=== PATIENT | female | born 1980 | race Caucasian/White ===

== ENCOUNTER 2022-07-07 20:25 | Emergency (ER) | payer BC, SELFPAY ==
--- OUTSIDE RECORDS SUMMARY | 2022-07-07 20:27 | XMS REPORT | Continuity of Care Document ---
:1980 Author Organization [facility] t Address [address] [place] [address] Care Team Providers Name Role Phone Pcp, Patient Does Not Have A Primary Care Physician +[id number] Nurse, [facility] Attending Clinician Unavailable Valentina Ellington MD Attending Clinician VALENTINA ELLINGTON Attending Clinician Unavailable Doctor Unassigned, [place] Attending Clinician Unavailable Migdalia Copeland Attending Clinician Angy Mobley Attending Clinician MIGDALIA KINCAID Attending Clinician Unavailable Payers Payer Name Policy Type Policy Number Effective Date Expiration Date S ource Problems Condition Condition Condition Status Onset Resolution Last Treating Co mments Source Name Details Category Date Date Treatment Clinician Date No known No known Disease Unive rs active active ity of problems problems [facility] Allergies, Adverse Reactions, Alerts Allergy Allergy Status Severity Reaction(s) Onset Inactive Treating Comm ents Source Name Type Date Date Clinician NO KNOWN Drug Active Univers ALLERGIE Class ity of S [facility] Social History Social Habit Start Date Stop Date Quantity Comments Source Exposure to Not sure [facility] SARS-CoV-2 (event) Medica l Branch Tobacco use and 2022-01-13 2022-01-13 Never used [facility] exposure 00:00:00 00:00:00 [facility] Sex Assigned At [birth year] [facility] 00:00:00 00:00:00 [facility] Smoking Status Start Date Stop Date Source Never smoker [facility] Medications Ordered Filled Start Stop Current Ordering Indication Dosage Frequency Signature Comments Components Source Medication Medication Date Date Medication? Clinician (SIG) Name Name cefTRIAXone 2021- No [id number] 500mg 500 mg, Univers (ROCEPHIN) 01-15 Intramuscu it y of injection 06:00: 17:20 [place]CE, [place] 500 mg 00 :00 1 dose, On Medical Fri Branch 01/15/22 at 0000, BILL
Re ason for Anti-Infec tive: Documented Infection< br>Documen mauricio Infection Site: Urine
D uration of Therapy: 7 days cefTRIAXone 2021- No [id number] 500mg Univers (ROCEPHIN) 01-15 ity of injection 06:00: 17:59 [place] 500 mg 00 :00 Medical Branch cefTRIAXone 2021- No [id number] 500mg Univers (ROCEPHIN) 01-15 ity of injection 06:00: 17:59 [place] 500 mg 00 :00 Medical Branch lidocaine 2021- No [id number] 1.1mL Un terence 1% (PF) 01-14 ity of (XYLOCAINE) 22:30: 10:29 [place] injection 00 :00 Medical 1.1 mL Branch metroNIDAZO 2021- No [id number] 500mg Take 1 Univers LE (FLAGYL) 01-1425 tablet by it y of 500 mg 00:00: 05:59 mouth [place] tablet 00 :00 every 12 Medical (twelve) Branch hours for 7 days. metroNIDAZO 2021- No [id number] 500mg Take 1 Univers LE (FLAGYL) 01-1425 tablet by it y of 500 mg 00:00: 05:59 mouth [place] tablet 00 :00 every 12 Medical (twelve) Branch hours for 7 days. metroNIDAZO 2021- No [id number] 500mg Take 1 Univers LE (FLAGYL) 01-1425 tablet by it y of 500 mg 00:00: 05:59 mouth [place] tablet 00 :00 every 12 Medical (twelve) Branch hours for 7 days. metroNIDAZO 2021- No [id number] 500mg Take 1 Univers LE (FLAGYL) 01-14-25 tablet by it y of 500 mg 00:00: 05:59 mouth [place] tablet 00 :00 every 12 Medical (twelve) Branch hours for 7 days. dextroamphe 2022-0 Yes 30mg Take 30 mg Univers tamine-amph 1-19 by mouth 2 it y of etamine 30 00:00: (two) [place] mg tablet 00 times Medical daily. Branch dextroamphe 2-0 Yes 30mg Take 30 mg Univers tamine-amph 1-19 by mouth 2 it y of etamine 30 00:00: (two) [place] mg tablet 00 times Medical daily. Branch dextroamphe 2-0 Yes 30mg Take 30 mg Univers tamine-amph 1-19 by mouth 2 it y of etamine 30 00:00: (two) [place] mg tablet 00 times Medical daily. Branch dextroamphe 2-0 Yes 30mg Take 30 mg Univers tamine-amph 1-19 by mouth 2 it y of etamine 30 00:00: (two) [place] mg tablet 00 times Medical daily. Branch dextroamphe 2021-0 Yes 30mg Take 30 mg Univers tamine-amph 1-19 by mouth 2 it y of etamine 30 00:00: (two) [place] mg tablet 00 times Medical daily. Branch clonazePAM 2021-0 Yes .5mg Take 0.5 Uni vers 0.5 mg 1-18 mg by ity of tablet 00:00: mouth at [place] [address] bedtime. Medical Branch clonazePAM 2021-0 Yes .5mg Take 0.5 Uni vers 0.5 mg 1-18 mg by ity of tablet 00:00: mouth at [place] [address] bedtime. Medical Branch clonazePAM 2021-0 Yes .5mg Take 0.5 Uni vers 0.5 mg 1-18 mg by ity of tablet 00:00: mouth at [place] [address] bedtime. Medical Branch clonazePAM 2-0 Yes .5mg Take 0.5 Uni vers 0.5 mg 1-18 mg by ity of tablet 00:00: mouth at [place] [address] bedtime. Medical Branch clonazePAM 2-0 Yes .5mg Take 0.5 Uni vers 0.5 mg 1-18 mg by ity of tablet 00:00: mouth at [place] [address] bedtime. Medical Branch escitalopra 2020-11 Yes TAKE HALF U nivers m oxalate 2-20 OF A ity of 10 mg 00:00: TABLET (5 [place] tablet 00 MG) BY Medical MOUTH Branch DAILY FOR 1 WEEK THEN TAKE 10 MG BY MOUTH traZODone 2021-1 Yes TAKE 25-50 Un terence 50 mg 2-20 MG (1/2 -1 ity of tablet 00:00: TABLET) BY [address] DAILY AT [facility] 2020-11 Yes TAKE HALF U nivers m oxalate 2-20 OF A ity of 10 mg 00:00: TABLET (5 [place] tablet 00 MG) BY [facility] MOUTH [place] DAILY FOR 1 WEEK THEN TAKE 10 MG BY MOUTH traZODone 2020-11 Yes TAKE 25-50 Un terence 50 mg 2-20 MG (1/2 -1 ity of tablet 00:00: TABLET) BY [address] [facility]-11 Yes TAKE HALF U nivers m oxalate 2-20 OF A ity of 10 mg 00:00: TABLET (5 [place] tablet 00 MG) BY [facility] MOUTH [place] DAILY FOR 1 WEEK THEN TAKE 10 MG BY MOUTH traZODone 2020-11 Yes TAKE 25-50 Un terence 50 mg 2-20 MG (1/2 -1 ity of tablet 00:00: TABLET) BY [address] DAILY AT [facility] 2020-11 Yes TAKE HALF U nivers m oxalate 2-20 OF A ity of 10 mg 00:00: TABLET (5 [place] tablet 00 MG) BY [facility] MOUTH [place] DAILY FOR 1 WEEK THEN TAKE 10 MG BY MOUTH traZODone 2020-11 Yes TAKE 25-50 Un terence 50 mg 2-20 MG (1/2 -1 ity of tablet 00:00: TABLET) BY [address] [facility] 2020-11 Yes TAKE HALF U nivers m oxalate 2-20 OF A ity of 10 mg 00:00: TABLET (5 [place] tablet 00 MG) BY [facility] MOUTH [place] DAILY FOR 1 WEEK THEN TAKE 10 MG BY MOUTH traZODone 2020-11 Yes TAKE 25-50 Un terence 50 mg 2-20 MG (1/2 -1 ity of tablet 00:00: TABLET) BY [address] DAILY AT [facility] Vital Signs Vital Name Observation Time Observation Value Comments Source Systolic blood 2022-01-15 17:23:00 120 mm[Hg] Univer sity of pressure [facility] Diastolic blood 2022-01-15 17:23:00 82 mm[Hg] Unive rsity of pressure [place] [facility] Heart rate 2022-01-15 17:23:00 104 /min [facility] [place] [facility] Body temperature 2022-01-15 17:23:00 36.94 [place] [facility] ersity of [place] [facility] Respiratory rate 2022-01-15 17:23:00 16 /min Univ ersity [facility] [place] [facility] Body height 2022-01-15 17:23:00 154.9 cm [facility] [place] [facility] Body weight 2022-01-15 17:23:00 56.246 kg [facility] [place] [facility] BMI 2022-01-15 17:23:00 23.43 kg/m2 [facility] [place] [facility] Oxygen saturation in 2022-01-15 17:23:00 100 /min University of Arterial blood by [place] [employer] melissa Pulse oximetry Branch Systolic blood 2022-01-14 00:15:00 137 mm[Hg] Univer sity of [place] [facility] [place] Diastolic blood 2022-01-14 00:15:00 88 mm[Hg] Unive rsity of [place] [facility] [place] Heart rate 2022-01-14 00:15:00 108 /min [facility] [place] [facility] Body temperature 2022-01-14 00:15:00 37 [place] [facility] Respiratory rate 2022-01-14 00:15:00 16 /min [facility] ersity [facility] Medical Branch Body height 2022-01-14 00:15:00 154.9 cm [facility] [place] [facility] Body weight 2022-01-14 00:15:00 55.611 kg [facility] [place] [facility] BMI 2022-01-14 00:15:00 23.17 kg/m2 [facility] [place] [facility] Oxygen saturation in 2022-01-14 00:15:00 97 /min University of Arterial blood by [facility] Pulse oximetry Branch Procedures Procedure Date / Time Performing Clinician Source Performed CONSENT/REFUSAL FOR 2022-01-15 17:10:16 Doctor Unassigned, No [facility] DIAGNOSIS AND TREATMENT Name Medical Branch ASSIGNMENT OF BENEFITS 2022-01-15 17:10:05 Doctor Unassigned, No [facility] Name Medical Branch GALV ONLY - VAGINAL 2022-01-14 00:35:00 Migdalia Kincaid [facility] [place] PATHOGENS BY [employer] [facility] ACID TESTING URINALYSIS MICROSCOPIC 2022-01-14 00:25:00 Migdalia Kincaid [facility] GC & CHLAMYDIA 2022-01-14 00:25:00 Sanjiv [facility] COVID-19 (MOLECULAR 2022-01-14 00:18:00 Sanjiv [facility] NUCLEIC ACID AMPLIFICATION) POCT MOLECULAR FLU 2022-01-14 00:15:00 Angy Hernandez [facility] Encounters Start End Encounter Admission Attending Care Care Encounter Source Date/Time Date/Time Type Type Clinicians Facility Department ID 2022-01-15 2022-01-15 Nurse Nurse, [facility] [id number] Univers 11:00:00 11:20:00 Visit [facility] [id number] ity [facility] [id number] Cl as RENEA?BLEA [id number] [address] MEDICAL OFFICE [facility] 2022-01-15 2022-01-15 Outpatient R [facility] [id number] Univers 11:00:00 11:00:00 [id number] 2022-01-15 [id number] Univers 11:00:00 11:00:00 [facility] 2022-01-15 2022-01-15 Orders Doctor [place] [id number] Univers 00:00:00 00:00:00 Only Unassigned, DYLAN [id number] [place] [facility] [id number] Cl as [id number] [address] 2022-01-14 2022-01-14 Case [facility] [id number] Univers 00:00:00 00:00:00 Management [facility] [id number] ity of [place] [id number] Cl as RENEA?BLEA [phone] [address] MEDICAL OFFICE BUILDING 2022-01-14 2022-01-14 [facility] [id number] Univers 00:00:00 00:00:00 [facility] [id number] [facility] [id number] Cl as RENEA?BLEA [phone] [address] MEDICAL OFFICE [facility] 2022-01-13 2022-01-13 Urgent Migdalia Kincaid [facility] [id number] Univers 18:40:00 18:52:37 [facility] [id number] ity [facility] [id number] Cl as RENEA?BLEA [id number] [address] OFFICE [facility] 2022-01-13 2022-01-13 Outpatient R SANJIV [facility] [id number] [facility] 18:40:00 18:52:37 [facility] Results Test Description Test Time Test Comments Results Result Comments Source POCT MOLECULAR FLU 2022-01-14 00:26:12 Test Item Value Reference Range Interpretation Comme nts POCT Molecular FluA (test code = 18817-1) Negative Negative POCT Molecular FluB (test code = 27404-6) Negative Negative Lab Interpretation (test code = 02648-4) Normal [facility]
[2022-07-07 21:16] LABS: Urine Blood Negative (Negative); Urine Glucose Negative (Negative); Urine Protein Negative (Negative); Urine Specific Gravity <=1.005 (1.005-1.030); Urine pH 6.5 (5.0-7.0)
[2022-07-07 21:53] LABS: Absolute Lymphocytes (CBC) 1.3 K/uL (0.7-4.9); Hematocrit 34.7 % (36.0-45.0); MPV 7.2 fL (7.6-11.3); RBC Red Blood Cell Count 3.69 M/uL (3.86-4.86)
[2022-07-07 22:05] LABS: ALT/SGPT 23 U/L (12-78); AST/SGOT 20 U/L (15-37); Albumin 3.2 g/dL (3.4-5.0); Alkaline Phosphatase 66 U/L (45-117); BUN Blood Urea Nitrogen 8 mg/dL (7-18); Bicarbonate 28 mmol/L (21-32); Bilirubin Total 0.2 mg/dL (0.2-1.0); Glomerular Filtration Rate 118 ml/min (=/>90); Glucose Level 94 mg/dL (74-106); Potassium 3.8 mmol/L (3.5-5.1); Protein, Total 6.1 g/dL (6.4-8.2); Sodium Level 143 mmol/L (136-145)
[2022-07-07 22:07] LABS: Bilirubin Direct < 0.1 mg/dL (0-0.2)
[2022-07-07 22:22] LABS: Barbiturates NEGATIVE (NEGATIVE); Benzodiazepines NEGATIVE (NEGATIVE); Cocaine NEGATIVE (NEGATIVE); METHAMPHETAM POSITIVE (NEGATIVE); Methadone NEGATIVE (NEGATIVE); Opiates NEGATIVE (NEGATIVE); Phencyclidine NEGATIVE (NEGATIVE); THC Cannibis NEGATIVE (NEGATIVE)
--- NOTE | 2022-07-07 22:44 | ER ---
Nurse's Notes [facility] Name: Lola Curtis Age: 42 yrs Sex: Female : 1980 Arrival Date: 07/07/2022 Time: 20:33 Bed 18 Private MD: Diagnosis: Post-traumatic stress disorder (PTSD);Anxiety disorder, unspecified Presentation: 07/07 20:48 Chief complaint: EMS states: son called ems for pt who took "unknown amount" of sm5 klonopin and was worried about her. pt stating she only took 2 due to having an anxiety attack. pt with full bottle of klonopin. Coronavirus screen: At this time, the client does not indicate any symptoms associated with coronavirus-19. Ebola Screen: No symptoms or risks identified at this time. Initial Sepsis Screen: Does the patient meet any 2 criteria? No. Patient's initial sepsis screen is negative. Does the patient have a suspected source of infection? No. Patient's initial sepsis screen is negative. Risk Assessment: Do you want to hurt yourself or someone else? Patient reports no desire to harm self or others. Onset of symptoms was July 07, 2022. 20:48 Method Of Arrival: EMS: [facility] 20:48 Acuity: TETE 3 sm5 Triage Assessment: 20:51 General: Appears in no apparent distress. Behavior is cooperative. Pain: Denies pain. sm5 Neuro: Level of Consciousness is awake, alert, obeys commands, Oriented to person, place, time, situation. Cardiovascular: Capillary refill < 3 seconds Patient's skin is warm and dry. Respiratory: Airway is patent Trachea midline Respiratory effort is even, unlabored. Historical: - Allergies: 20:50 No Known Allergies; sm5 - PSHx: 20:50 Total abdominal hysterectomy; Tonsillectomy; sm5 - Immunization history:: Client reports receiving the 2nd dose of the Covid vaccine. - Social history:: Smoking status: unknown. Screenin:51 Abuse screen: Denies threats or abuse. Denies injuries from another. Nutritional sm5 screening: No deficits noted. Tuberculosis screening: No symptoms or risk factors identified. Fall Risk None identified. Assessment: 21:18 Reassessment: see triage. 5 22:00 Reassessment: Patient and/or family updated on plan of care and expected duration. Pain ke1 level reassessed. Patient is alert, oriented x 3, equal unlabored respirations, skin warm/dry/pink. Patient states feeling better. Patient states symptoms have improved. General: Appears in no apparent distress. Behavior is appropriate for age. Neuro: Level of Consciousness is awake, alert, Oriented to person, place, time, situation. 22:56 Respiratory: Trachea midline Respiratory effort is even, unlabored, Respiratory pattern ke1 is regular, symmetrical. Vital Signs: 20:48 BP 141 / 90; Pulse 101; Resp 18; Pulse Ox 100% on R/A; Weight 53.98 kg; sm5 22:57 BP 132 / 86; Pulse 92; Resp 18; Pulse Ox 100% ; Pain 0/10; ke1 ED Course: 20:33 Patient arrived in ED. ke1 20:35 Nicole Salinas FNP-C [facility]. snw 20:35 Kash Baig MD is Attending Physician. snw 20:50 Triage completed. 5 20:51 Arm band placed on right wrist. 5 20:51 Patient has correct armband on for positive identification. Bed in low position. Call 5 light in reach. Side rails up X2. 21:18 Maintain EMS IV. Dressing intact. Good blood return noted. Site clean \\T\\ dry. Gauge \\T\\ sm 5 site: 18G R AC. 22:52 Starr Stevens, PATTIE is Primary Nurse. ke1 22:54 No provider procedures requiring assistance completed. IV discontinued. ke1 Administered Medications: No medications were administered Medication: 20:51 VIS not applicable for this client. 5 Outcome: 22:44 Discharge ordered by . snw 22:55 Discharged to home ambulatory. ke1 22:55 Condition: good 22:55 Discharge instructions given to patient. 22:58 Patient left the ED. ke1 Signatures: Nicole Salinas FNP-C FNP-Judy Delcid RN RN [facility] Starr Stevens RN RN ke1
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
[2022-07-07 23:43] LABS: Protime INR 1.03
[2022-07-08 01:52] VITALS: O2SAT 100
[2022-07-08 01:55] VITALS: BP 132/86
--- NOTE | 2022-07-08 14:32 | EKG ---
Test Date: 2022-07-07 Test Time: 21:20:23 Registered Respiratory Therapist: OMAR MEASUREMENT RESULTS: Intervals: Rate: 97 KS: 152 QRSD: 80 QT: 336 QTc: 426 [place]: P: 60 KS: 152 QRS: 31 T: 60 INTERPRETIVE STATEMENTS: Normal sinus rhythm Normal ECG No previous ECG available for comparison Electronically Signed On 07-08-22 14:30:29 CDT by Magdy Contreras
== END 2022-07-07 22:58 | disposition home or self-care (01) ==
LOC: ER 20:25
DX: F41.9 Anxiety disorder, unspecified (principal); F43.10 Post-traumatic stress disorder, unspecified
CPT/HCPCS: 36415; 80048; 80076; 80307; 80320; 80329; 81003; 85025; 85610; 85730; 93005; 99283

== ENCOUNTER 2023-02-16 21:44 | Emergency (ER) | payer OTHER ==
--- OUTSIDE RECORDS SUMMARY | 2023-02-16 21:48 | XMS REPORT | Continuity of Care Document ---
:1980 Author Organization [facility] t Address [address] [facility]. [address] [place] [id number] Care Team Providers Name Role Phone Pcp, Patient Does Not Have A Primary Care Physician +[phone] Doctor Unassigned, [place] Attending Clinician Unavailable [facility] Attending Clinician Unavailable Valentina Ellington MD Attending Clinician VALENTINA ELLINGTON Attending Clinician Unavailable Migdalia Copeland Attending Clinician MIGDALIA KINCAID Attending Clinician Unavailable Angy Mobley Attending Clinician Payers Payer Name Policy Type Policy Number Effective Date Expiration Date S ource Problems Condition Condition Condition Status Onset Resolution Last Treating Co mments Source Name Details Category Date Date Treatment Clinician Date No known No known Disease Unive rs active active ity of problems problems [facility] Allergies, Adverse Reactions, Alerts Allergy Allergy Status Severity Reaction(s) Onset Inactive Treating Comm ents Source Name Type Date Date Clinician NO KNOWN Drug Active Univers ALLERGIE Class ity of S [facility] Social History Social Habit Start Date Stop Date Quantity Comments Source Exposure to Not sure [facility]-CoV-2 [facility] (event) [place] Tobacco use and 2022-01-13 2022-01-13 Smokeless tobacco Un iversity of exposure 00:00:00 00:00:00 non-user [facility] Sex Assigned At [birth year] Universit y of 00:00:00 00:00:00 [facility] Smoking Status Start Date Stop Date Source Never smoked tobacco [facility] Medications Ordered Filled Start Stop Current Ordering Indication Dosage Frequency Signature Comments Components Source Medication Medication Date Date Medication? Clinician (SIG) Name Name cefTRIAXone 2021- No [id number] 500mg 500 mg, Univers (ROCEPHIN) 01-15 Intramuscu it y of injection 06:00: 17:20 [place], ONCE, [place] 500 mg 00 :00 1 dose, On Medical Fri Branch 01/15/22 at 0000, BILL
Re ason for Anti-Infec tive: Documented Infection< br>Documen mauricio Infection Site: Urine
D uration of Therapy: 7 days cefTRIAXone 2021- No [id number] 500mg Univers (ROCEPHIN) 01-15 ity of injection 06:00: 17:59 [place] 500 mg 00 :00 Medical Branch cefTRIAXone 2021- No [id number] 500mg Univers (ROCEPHIN) 01-15 ity of injection 06:00: 17:59 [place] 500 mg 00 :00 Medical Branch lidocaine 2021- No [id number] 1.1mL Un terence 1% (PF) 01-14 ity of (XYLOCAINE) 22:30: 10:29 [place] injection 00 :00 Medical 1.1 mL Branch metroNIDAZO 2021- No [id number] 500mg Take 1 Univers LE (FLAGYL) 01-14 tablet by it y of 500 mg 00:00: 05:59 mouth [place] tablet 00 :00 every 12 Medical (twelve) Branch hours for 7 days. metroNIDAZO 2021- No [id number] 500mg Take 1 Univers LE (FLAGYL) 01-14-25 tablet by it y of 500 mg 00:00: 05:59 mouth [place] tablet 00 :00 every 12 Medical (twelve) Branch hours for 7 days. metroNIDAZO 2021- No [id number] 500mg Take 1 Univers LE (FLAGYL) 01-14-25 tablet by it y of 500 mg 00:00: 05:59 mouth [place] tablet 00 :00 every 12 Medical (twelve) Branch hours for 7 days. metroNIDAZO 2021- No [id number] 500mg Take 1 Univers LE (FLAGYL) 2-14 01-25 tablet by it y of 500 mg 00:00: 05:59 mouth [place] tablet 00 :00 every 12 Medical (twelve) Branch hours for 7 days. dextroamphe 2022-0 Yes 30mg Take 30 mg Univers tamine-amph 1-19 by mouth 2 it y of etamine 30 00:00: (two) [place] mg tablet 00 times Medical daily. Branch dextroamphe 2022-0 Yes 30mg Take 30 mg Univers tamine-amph 1-19 by mouth 2 it y of etamine 30 00:00: (two) [place] mg tablet 00 times Medical daily. Branch dextroamphe 2022-0 Yes 30mg Take 30 mg Univers tamine-amph 1-19 by mouth 2 it y of etamine 30 00:00: (two) [place] mg tablet 00 times Medical daily. Branch dextroamphe 2022-0 Yes 30mg Take 30 mg Univers tamine-amph 1-19 by mouth 2 it y of etamine 30 00:00: (two) [place] mg tablet 00 times Medical daily. Branch dextroamphe 2022-0 Yes 30mg Take 30 mg Univers tamine-amph 1-19 by mouth 2 it y of etamine 30 00:00: (two) [place] mg tablet 00 times Medical daily. Branch dextroamphe 2022-0 Yes 30mg Take 30 mg Univers tamine-amph 1-19 by mouth 2 it y of etamine 30 00:00: (two) [place] mg tablet 00 times Medical daily. Branch clonazePAM 2022-0 Yes .5mg Take 0.5 Uni vers 0.5 mg 1-18 mg by ity of tablet 00:00: mouth at [place] [address] bedtime. Medical Branch clonazePAM 2022-0 Yes .5mg Take 0.5 Uni vers 0.5 mg 1-18 mg by ity of tablet 00:00: mouth at [place] [address] bedtime. Medical Branch clonazePAM 2022-0 Yes .5mg Take 0.5 Uni vers 0.5 mg 1-18 mg by ity of tablet 00:00: mouth at [place] [address] bedtime. Medical Branch clonazePAM 2022-0 Yes .5mg Take 0.5 Uni vers 0.5 mg 1-18 mg by ity of tablet 00:00: mouth at [place] [address] bedtime. Medical Branch clonazePAM 2022-0 Yes .5mg Take 0.5 Uni vers 0.5 mg 1-18 mg by ity of tablet 00:00: mouth at [place] [address] bedtime. Medical Branch clonazePAM 2022-0 Yes .5mg Take 0.5 Uni vers 0.5 mg 1-18 mg by ity of tablet 00:00: mouth at [address] [facility] Yes TAKE HALF U nivers m oxalate 2-20 OF A ity of 10 mg 00:00: TABLET (5 [place] tablet 00 MG) BY [facility] MOUTH [place] DAILY FOR 1 WEEK THEN TAKE 10 MG BY MOUTH traZODone 2020-11 Yes TAKE 25-50 Un terence 50 mg 2-20 MG (1/2 -1 ity of tablet 00:00: TABLET) BY [address] DAILY AT [facility] escitalopra 2020-11 Yes TAKE HALF U nivers m oxalate 2-20 OF A ity of 10 mg 00:00: TABLET (5 [place] tablet 00 MG) BY [facility] MOUTH [place] DAILY FOR 1 WEEK THEN TAKE 10 MG BY MOUTH traZODone 2020-11 Yes TAKE 25-50 Un terence 50 mg 2-20 MG (1/2 -1 ity of tablet 00:00: TABLET) BY [address] [facility] Yes TA[facility] HALF U nivers m oxalate 2-20 OF A ity of 10 mg 00:00: TABLET (5 [place] tablet 00 MG) BY [facility] MOUTH [place] DAILY FOR 1 WEEK THEN TAKE 10 MG BY MOUTH traZODone 2020-11 Yes TAKE 25-50 Un terence 50 mg 2-20 MG (1/2 -1 ity of tablet 00:00: TABLET) BY [address] DAILY AT [facility] escitalopra 2020-11 Yes TAKE HALF U nivers m oxalate 2-20 OF A ity of 10 mg 00:00: TABLET (5 [place] tablet 00 MG) BY [facility] MOUTH [place] DAILY FOR 1 WEEK THEN TAKE 10 MG BY MOUTH traZODone 2020-11 Yes TAKE 25-50 Un terence 50 mg 2-20 MG (1/2 -1 ity of tablet 00:00: TABLET) BY [address] DAILY AT [facility] escitalopra 2020-11 Yes TAKE HALF U nivers m oxalate 2-20 OF A ity of 10 mg 00:00: TABLET (5 [place] tablet 00 MG) BY [facility] MOUTH [place] DAILY FOR 1 WEEK THEN TAKE 10 MG BY MOUTH traZODone 2020-11 Yes TAKE 25-50 Un terence 50 mg 2-20 MG (1/2 -1 ity of tablet 00:00: TABLET) BY [place] [address] MOUTH Medical DAILY AT [place] BEDTIME escitalopra 2020-11 Yes TAKE HALF U nivers m oxalate 2-20 OF A ity of 10 mg 00:00: TABLET (5 [place] tablet 00 MG) BY [facility] MOUTH [place] DAILY FOR 1 WEEK THEN TAKE 10 MG BY MOUTH traZODone 2020-11 Yes TAKE 25-50 Un terence 50 mg 2-20 MG (1/2 -1 ity of tablet 00:00: TABLET) BY [place] [address] MOUTH Medical DAILY AT [place] BEDTIME Vital Signs Vital Name Observation Time Observation Value Comments Source Systolic blood 2022-01-15 17:23:00 120 mm[Hg] Univer sity of [facility] Diastolic blood 2022-01-15 17:23:00 82 mm[Hg] [facility] Heart rate 2022-01-15 17:23:00 104 /min [facility] Body temperature 2022-01-15 17:23:00 36.94 [place] [facility] Respiratory rate 2022-01-15 17:23:00 16 /min [facility] Body height 2022-01-15 17:23:00 154.9 cm [facility] Body weight 2022-01-15 17:23:00 56.246 kg [facility] BMI 2022-01-15 17:23:00 23.43 kg/m2 [facility] Oxygen saturation in 2022-01-15 17:23:00 100 /min [facility] Arterial blood by [facility] Pulse oximetry [place] Systolic blood 2022-01-14 00:15:00 137 mm[Hg] Univer sity of [facility] Diastolic blood 2022-01-14 00:15:00 88 mm[Hg] Unive rsity of [facility] Heart rate 2022-01-14 00:15:00 108 /min [facility] Body temperature 2022-01-14 00:15:00 37 [place] [facility] Respiratory rate 2022-01-14 00:15:00 16 /min [facility] Body height 2022-01-14 00:15:00 154.9 cm [facility] Body weight 2022-01-14 00:15:00 55.611 kg [facility] BMI 2022-01-14 00:15:00 23.17 kg/m2 [facility] Oxygen saturation in 2022-01-14 00:15:00 97 /min [facility] Arterial blood by [facility] Pulse oximetry Branch Procedures Procedure Date / Time Performing Clinician Source Performed EXTERNAL PROVIDER 2022-07-09 05:01:00 Doctor Unassigned, No [facility] RECORDS Name [facility] CONSENT/REFUSAL FOR 2022-01-15 17:10:16 Doctor Unassigned, No [facility] DIAGNOSIS AND TREATMENT Name [facility] ASSIGNMENT OF BENEFITS 2022-01-15 17:10:05 Doctor Unassigned, No [facility] Name [facility] GALV ONLY - VAGINAL 2022-01-14 00:35:00 Sanjiv Migdalia [facility] PATHOGENS BY NUCLEIC Medical [facility] ACID TESTING URINALYSIS MICROSCOPIC 2022-01-14 00:25:00 Sanjiv [facility] GC & CHLAMYDIA 2022-01-14 00:25:00 [place] [facility] [place] AMPLIFIED ASSAY [facility] COVID-19 (MOLECULAR 2022-01-14 00:18:00 Sanjiv [facility] TESTING [facility] NUCLEIC ACID AMPLIFICATION) POCT MOLECULAR FLU 2022-01-14 00:15:00 Angy Hernandez [facility] [place] Encounters Start End Encounter Admission Attending Care Care Encounter Source Date/Time Date/Time Type Type Clinicians Facility Department ID 2022-07-09 2022-07-09 Orders Doctor RAIZA 1.2.840.114 [id number] [facility] 00:00:00 00:00:00 Only Unassigned, DYLAN 350.1.13.10 ity of [place] [facility] 4.2.7.2.686 Cl as [id number] [facility] 009 Branch 2022-01-15 2022-01-15 Nurse Nurse, Sukh [facility] 1.2.840.114 [id number] Univers 11:00:00 11:20:00 Visit Valentina Ellington [facility] 350.1.13.10 ity of [place] 4.2.7.2.686 Cl as RENEA?BLEA [id number] [address] MEDICAL OFFICE [facility] 2022-01-15 2022-01-15 Outpatient Stevo ELLINGTON [facility] [id number] Univers 11:00:00 11:00:00 VALENTINA ity of [facility] 2022-01-15 2022-01-15 Orders Doctor RAIZA 1.2.840.114 [id number] Univers 00:00:00 00:00:00 Only Unassigned, DYLAN 350.1.13.10 ity of [place] [facility] 4.2.7.2.686 Cl as [id number] [address] 2022-01-14 2022-01-14 Jeramy Kincaid [facility] 1.2.840.114 [id number] Univers 00:00:00 00:00:00 Management Migdalia HEALTH [id number] [facility] 4.2.7.2.686 Cl as RENEA?BLEA [id number] [address] MEDICAL OFFICE [facility] 2022-01-14 2022-01-14 Jeramy Kincaid [facility] 1.2.840.114 [id number] Univers 00:00:00 00:00:00 Management Migdalia HEALTH 350.1.13.10 ity of [place] 4.2.7.2.686 Cl as RENEA?BLEA [id number] [address] OFFICE [facility] 2022-01-14 2022-01-14 Jeramy Kincaid [facility] 1.2.840.114 [id number] Univers 00:00:00 00:00:00 Management Migdalia HEALTH 350.1.13.10 ity of [place] 4.2.7.2.686 Cl as RENEA?BLEA [id number] [address] OFFICE [facility] 2022-01-13 2022-01-13 Outpatient R SANJIV [facility] [id number] Univers 18:40:00 18:52:37 MIGDALIA ity of [facility] 2022-01-13 2022-01-13 Migdalia Whitley [facility] 1.2.840.114 [id number] Univers 18:40:00 18:52:37 [facility] 350.1.13.10 ity [facility] [id number] Cl as RENEA?BLEA [id number] [address] MEDICAL OFFICE BUILDING 2022-01-13 2022-01-13 Outpatient R SANJIV [facility] [id number] Univers 18:40:00 18:52:37 MIGDALIA ity [facility] 2022-01-13 2022-01-13 Outpatient R SANJIV [facility] [id number] Univers 18:40:00 18:52:37 MIGDALIA ity [facility] 2022-01-13 2022-01-13 Outpatient R [facility] [id number] Univers 18:45:00 18:45:00 ity [facility] 2022-01-13 2022-01-13 Outpatient R [facility] [id number] Univers 18:45:00 18:45:00 ity [facility] 2022-01-13 2022-01-13 Letter Doctor RAIZA 1.2.840.114 [id number] Univers 00:00:00 00:00:00 (Out) Unassigned, DYLAN 350.1.13.10 ity of [place] [facility] 4.2.7.2.686 Cl as [id number] [address] 2022-01-13 2022-01-13 Letter Doctor RAIZA [place]2.840.114 [id number] Univers 00:00:00 00:00:00 (Out) Unassigned, DYLAN 350.1.13.10 ity of [place] [address]686 Cl as [id number] [address] Results Test Description Test Time Test Comments Results Result Sour e Comments SCR MAMM BILATERAL 2022-12-21 AMANDEEP CAD DIGITAL 11:00:32 Swapnil yap: [place] : 1980 Sex: F - SCR MAMM BILATERAL AMANDEEP CAD DIGITALBILATERAL FIRST EVER DIGITAL SCREENING MAMMOGRAM 3D/2D WITH CAD: 3Digital breast tomosynthesis was performed in addition to routine CC and MLO views. Current mammographic images were evaluated by [employer] CAD (computer-aided detection) software. No prior exams were available for comparison. The tissue of both breasts is heterogeneously dense. This may lower the sensitivity of mammography. There are benign calcifications in both breasts. No suspicious mass, architectural distortion, malignant type calcification, or lymph node abnormality detected. IMPRESSION: BENIGNThere is no mammographic evidence of malignancy. Resume annual screening mammography in one year. (12/21/2023) Gail Sanchez M.D. scolivia/penrad:12/21/2022 11:00:32 Manager Money: Jessica Juan MM, [facility] Mammographyletter sent: BIRADS 1-2 Normal Mammogram BI-RADS: 2 Benign POCT MOLECULAR FLU 2022-01-14 00:26:12 Test Item Value Reference Range Interpretation Comme nts POCT Molecular FluA (test code = 54085-3) Negative Negative POCT Molecular FluB (test code = 86745-0) Negative Negative Lab Interpretation (test code = 79004-2) Normal [facility]
[2023-02-16] MEDS ORDERED: ONDANSETRON 4 MG/2 ML VIAL ONE (22:40)
[2023-02-16] MEDS ORDERED: MECLIZINE HCL 12.5 MG TAB ONE (22:40)
[2023-02-16] MEDS ORDERED: NA CHLORIDE 0.9% 1,000 ML ONE (22:40)
[2023-02-16 23:38] LABS: Absolute Lymphocytes (CBC) 1.6 K/uL (0.7-4.9); Hematocrit 38.7 % (36.0-45.0); Lymphocytes % 31.9 % (15.3-44.8); MCV 96.2 fL (80-100); MPV 7.5 fL (7.6-11.3); RBC Red Blood Cell Count 4.03 M/uL (3.86-4.86)
[2023-02-16 23:55] LABS: Albumin 3.7 g/dL (3.4-5.0); Bilirubin Total 0.4 mg/dL (0.2-1.0); Potassium 3.3 mEq/L (3.5-5.1)
[2023-02-17 00:23] LABS: Specific Gravity 1.005 (1.005-1.030); Urine Bacteria None Seen /HPF (<20); Urine Bilirubin NEGATIVE (Negative); Urine Blood Negative (Negative); Urine Clarity Clear (Clear); Urine Color Colorless (Yellow); Urine Glucose NEGATIVE (Negative); Urine Protein NEGATIVE (Negative); Urine RBC <5 /HPF (None Seen); Urine Urobilinogen Normal (Normal); Urine pH 6.5 (5.0-7.0)
--- NOTE | 2023-02-17 08:41 | ER ---
Nurse's Notes [facility] Name: Lola Curtis Age: 42 yrs Sex: Female : 1980 Arrival Date: 02/16/2023 Time: 21:50 Bed 16 Private MD: Trerence Falk T Diagnosis: Nausea with vomiting, unspecified;Diarrhea, unspecified;Dizziness and giddiness Presentation: 02/16 22:23 Chief complaint: Patient states: i accidently injected myself with my friends insulin lg3 this morning. shortly after i started feeling funny. went to urgent care for nausea and vomiting. my sugar levels were fine and they gave me nausea medication and sent me home. a few hours later i started feeling dizzy and having right sided abdominal pain and vomiting. Coronavirus screen: Client denies travel out of the [place] in the last 14 days. At this time, the client does not indicate any symptoms associated with coronavirus-19. Ebola Screen: No symptoms or risks identified at this time. Initial Sepsis Screen: Does the patient meet any 2 criteria? No. Patient's initial sepsis screen is negative. Does the patient have a suspected source of infection? No. Patient's initial sepsis screen is negative. Risk Assessment: Do you want to hurt yourself or someone else? Patient reports no desire to harm self or others. Onset of symptoms was February 16, 2023. 22:23 Method Of Arrival: Wheelchair lg3 22:23 Acuity: TETE 3 lg3 Triage Assessment: 22:27 General: Appears in no apparent distress. Behavior is calm, flat. Pain: Complains of lg3 pain in abdomen. EENT: No deficits noted. No signs and/or symptoms were reported regarding the EENT system. Neuro: No deficits noted. Cantu Agitation-Sedation Scale (RASS): -1 Drowsy Level of Consciousness is awake, obeys commands, Oriented to person, place, time, situation. Cardiovascular: No deficits noted. Denies chest pain, shortness of breath, Capillary refill < 3 seconds JVD is absent Patient's skin is warm and dry. Respiratory: No deficits noted. Airway is patent Respiratory effort is even, unlabored, Respiratory pattern is regular, symmetrical. GI: Reports lower abdominal pain, upper abdominal pain, cramping, nausea, vomiting. : No deficits noted. No signs and/or symptoms were reported regarding the genitourinary system. Derm: No deficits noted. No signs and/or symptoms reported regarding the dermatologic system. Skin is intact, is healthy with good turgor, Skin is dry, Skin is normal, Skin temperature is warm. Musculoskeletal: Reports generalized weakness. 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 - Social history:: Smoking status: Patient denies any tobacco usage or history of. Patient uses alcohol, only on a social basis. Screenin:26 Abuse screen: Denies threats or abuse. Denies injuries from another. Nutritional aa9 screening: Has had N/V for 3 or more days. Tuberculosis screening: No symptoms or risk factors identified. 02/17 02:42 [facility] ED Fall Risk Assessment (Adult) History of falling in the last 3 months, aa9 including since admission No falls in past 3 months (0 pts) Confusion or Disorientation No (0 pts) Intoxicated or Sedated No (0 pts) Impaired Gait No (0 pts) Mobility Assist Device Used No (0 pt) Altered Elimination No (0 pt) Score/Fall Risk Level 0 - 2 = Low Risk Oriented to surroundings, Maintained a safe environment, Educated pt \\T\\ family on fall prevention, incl call for assistance when getting out of bed. Assessment: 02/16 22:44 Reassessment: Patient appears in no apparent distress at this time. Patient and/or aa9 family updated on plan of care and expected duration. Pain level reassessed. 22:44 Neuro: Reports dizziness, since about 30 minutes ago Denies weakness numbness. aa9 Cardiovascular: Patient's skin is warm and dry. Respiratory: Airway is patent Respiratory effort is even, unlabored, Respiratory pattern is regular. GI: Reports nausea, earlier today, relived by Zofran given at urgent care earlier today. 22:50 Reassessment: Patient appears in no apparent distress at this time. pt stated"I think I aa9 will wait in the Zofran because my nausea was relived by the Zofran given earlier at urgent care.". 02/17 00:00 Reassessment: Patient appears in no apparent distress at this time. Patient and/or aa9 family updated on plan of care and expected duration. Pain level reassessed. Pain: Denies pain. 01:00 General: Appears in no apparent distress. comfortable. aa9 02:00 General: Appears in no apparent distress. comfortable. aa9 02:42 Reassessment: Patient appears in no apparent distress at this time. Patient and/or aa9 family updated on plan of care and expected duration. Pain level reassessed. Patient states symptoms have improved. Pain: Denies pain. Vital Signs: 02/16 22:23 BP 118 / 81; Pulse 88; Resp 17; Temp 98.7(O); Pulse Ox 100% on R/A; Weight 58.06 kg lg3 (R); Height 5 ft. 1 in. (R); Pain 5/10; 23:54 BP 105 / 74 Supine; Pulse 83; Resp 16; Pulse Ox 99% on R/A; aa9 23:58 BP 116 / 83 Sitting; Pulse 93; Pulse Ox 100% on R/A; aa9 02/17 00:00 BP 121 / 87 Standing; Pulse 88; Pulse Ox 100% on R/A; aa9 02/16 22:23 Body Mass Index 24.19 (58.06 kg, 154.94 cm) lg3 02/16 22:23 Pain Scale: Adult lg3 ED Course: 02/16 21:50 Patient arrived in ED. mr 21:50 Terrence Falk MD is Private Physician. mr 21:52 Kash Vallejo PA is PHCP. cp 21:52 Bakari Kumar MD is Attending Physician. cp 22:25 Triage completed. lg3 22:27 Arm band placed on right wrist. lg3 22:53 Holley Pacheco, PATTIE is Primary Nurse. aa9 02/17 02:42 Patient has correct armband on for positive identification. Bed in low position. Side aa9 rails up X 1. Adult w/ patient. Warm blanket given. 02:42 No provider procedures requiring assistance completed. aa9 02:51 IV discontinued, intact, bleeding controlled, No redness/swelling at site. Pressure aa9 dressing applied. Administered Medications: 02/16 22:44 Drug: NS 0.9% IV 1000 ml Route: IV; Rate: 1 bolus; Site: right antecubital; aa9 02/17 00:00 Follow up: Response: No adverse reaction; IV Status: Completed infusion; IV Intake: aa9 1000ml 02/16 22:44 Drug: Meclizine PO 25 mg Route: PO; aa9 23:24 Follow up: Response: No adverse reaction aa9 02/17 00:13 Drug: Ondansetron IVP 4 mg Route: IVP; Site: right antecubital; aa9 02:52 Follow up: Response: No adverse reaction aa9 Medication: 00:15 VIS not applicable for this client. aa9 Intake: 00:00 IV: 1000ml; Total: 1000ml. aa9 Outcome: 02:29 Discharge ordered by MD. cp 02:49 Discharged to home ambulatory, with family. aa9 02:49 Condition: stable 02:49 Discharge instructions given to patient, Instructed on discharge instructions, follow up and referral plans. medication usage, Demonstrated understanding of instructions, follow-up care, medications, Prescriptions given X 1. 02:52 Patient left the ED. aa9 Signatures: Jose Yennifer mr Kash Vallejo PA PA cp Gibson, Lacie, RN RN lg3 Holley Pacheco RN RN aa9 Corrections: (The following items were deleted from the chart) 02/16 22:28 22:25 Home Meds: None; lg3 lg3
--- NOTE | 2023-02-17 08:41 | EDPHYS ---
Physician Documentation [facility] Name: Lola Curtis Age: 42 yrs Sex: Female : 1980 Arrival Date: 02/16/2023 Time: 21:50 Bed 16 Private MD: Terrence Falk T ED Physician Bakari Kumar HPI: 02/16 22:30 This 42 yrs old Female presents to ER via Wheelchair with complaints of Needle stick, cp Nausea. 22:30 The patient presents with abdominal pain in the right upper quadrant. Onset: The cp symptoms/episode began/occurred today. The patient presents to the emergency department with nausea, that is moderate, vomiting, that is intermittent, 5 times today. Possible causes: unknown. 22:30 Associated signs and symptoms: Pertinent positives: dizziness, near syncope, Pertinent cp negatives: constipation, diarrhea, fever, GI bleeding. 22:31 Patient reports accidently injecting herself with clean needle, friend's insulin, 5 cp units this morning. 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 - Social history:: Smoking status: Patient denies any tobacco usage or history of. Patient uses alcohol, only on a social basis. ROS: 22:35 Constitutional: Negative for fever. cp 22:35 Eyes: Negative for injury, pain, redness, and discharge. cp 22:35 ENT: Negative for drainage from ear(s), ear pain, sore throat, difficulty swallowing, cp difficulty handling secretions. 22:35 Cardiovascular: Negative for chest pain, palpitations. 22:35 Respiratory: Negative for cough, shortness of breath, wheezing. 22:35 Abdomen/GI: Positive for abdominal pain, nausea, vomiting, Negative for diarrhea, constipation, hematemesis, black/tarry stool, rectal bleeding. 22:35 : Negative for urinary symptoms. 22:35 Neuro: Positive for dizziness, near syncope, Negative for altered mental status, headache. 22:35 All other systems are negative. Exam: 22:40 Constitutional: The patient appears in no acute distress, alert, awake, cp non-diaphoretic, non-toxic, well developed, well nourished, uncomfortable. 22:40 Head/Face: Normocephalic, atraumatic. cp 22:40 Eyes: Periorbital structures: appear normal, Conjunctiva: normal, no exudate, no injection, Sclera: no appreciated abnormality, Lids and lashes: appear normal, bilaterally. 22:40 ENT: External ear(s): are unremarkable, Nose: is normal, Mouth: Lips: moist, Oral mucosa: pink and intact, moist, Posterior pharynx: is normal, airway is patent, no erythema, no exudate. 22:40 Neck: ROM/movement: is normal, is supple, without pain, no range of motions limitations, no nuchal rigidity. 22:40 Chest/axilla: Inspection: normal. 22:40 Cardiovascular: Rate: normal, Rhythm: regular, Edema: is not appreciated, JVD: is not appreciated. 22:40 Respiratory: the patient does not display signs of respiratory distress, Respirations: cp normal, no use of accessory muscles, no retractions, labored breathing, is not present, Breath sounds: are clear throughout, no decreased breath sounds, no stridor, no wheezing. 22:40 Abdomen/GI: Inspection: abdomen appears normal, Bowel sounds: active, all quadrants, Palpation: soft, in all quadrants, moderate abdominal tenderness, in all quadrants, rebound tenderness, is not appreciated, involuntary guarding, is not appreciated. 22:40 Back: CVA tenderness, is absent. 22:40 Skin: cellulitis, is not appreciated, no rash present. 22:40 Neuro: Orientation: to person, place \T\ time. Mentation: is normal, Cerebellar function: is grossly normal, Motor: moves all fours, strength is normal, Sensation: is normal. 22:55 ECG was reviewed by the Attending Physician. cp Vital Signs: 22:23 BP 118 / 81; Pulse 88; Resp 17; Temp 98.7(O); Pulse Ox 100% on R/A; Weight 58.06 kg lg3 (R); Height 5 ft. 1 in. (R); Pain 5/10; 23:54 BP 105 / 74 Supine; Pulse 83; Resp 16; Pulse Ox 99% on R/A; aa9 23:58 BP 116 / 83 Sitting; Pulse 93; Pulse Ox 100% on R/A; aa9 02/17 00:00 BP 121 / 87 Standing; Pulse 88; Pulse Ox 100% on R/A; aa9 02/16 22:23 Body Mass Index 24.19 (58.06 kg, 154.94 cm) lg3 02/16 22:23 Pain Scale: Adult lg3 MDM: 02/16 22:31 Patient medically screened. cp 02/17 02:29 Data reviewed: vital signs, nurses notes, lab test result(s), EKG, radiologic studies, cp CT scan. 02:29 Differential diagnosis: appendicitis, bowel obstruction, cholecystitis, Cholelithiasis, cp non-specific abd pain, pancreatitis. I considered the following discharge prescriptions or medication management in the emergency department Medications were administered in the Emergency Department. See MAR. Counseling: I had a detailed discussion with the patient and/or guardian regarding: the historical points, exam findings, and any diagnostic results supporting the discharge/admit diagnosis, lab results, radiology results, to return to the emergency department if symptoms worsen or persist or if there are any questions or concerns that arise at home. Response to treatment: the patient's symptoms have markedly improved after treatment, and as a result, I will discharge patient. Special discussion: Based on the patient's Hx, exam, and Dx evaluation, there is no indication for emergent surgery or inpatient Tx. It is understood by the patient/guardian that if the Sx's persist or worsen they need to return immediately for re-evaluation. 02/16 22:26 Order name: Orthostatics; Complete Time: 00:13 cp 02/16 22:26 Order name: IV Saline Lock; Complete Time: 22:44 cp 02/16 22:26 Order name: Labs collected and sent; Complete Time: 22:56 cp 02/16 22:26 Order name: EKG - Nurse/Tech; Complete Time: 22:53 cp 02/17 02:16 Order name: PO challenge; Complete Time: 02:41 cp EC/22 22:55 Rate is 77 beats/min. Rhythm is regular. RI interval is normal. QRS interval is normal. cp QT interval is normal. T waves are Inverted in lead aVR. Interpreted by me. Reviewed by me. Administered Medications: 22:44 Drug: NS 0.9% IV 1000 ml Route: IV; Rate: 1 bolus; Site: right antecubital; 02/17 00:00 Follow up: Response: No adverse reaction; IV Status: Completed infusion; IV Intake: aa9 1000ml 02/16 22:44 Drug: Meclizine PO 25 mg Route: PO; aa9 23:24 Follow up: Response: No adverse reaction 02/17 00:13 Drug: Ondansetron IVP 4 mg Route: IVP; Site: right antecubital; 9 02:52 Follow up: Response: No adverse reaction Disposition: 03:03 Co-signature as Attending Physician, Bakari Kumar MD I reviewed the patient's care rn provided by the Advanced Practice Provider and agree with the diagnosis and treatment plan. Disposition Summary: 02/17/23 02:29 Discharge Ordered Location: Home cp Problem: new cp Symptoms: have improved cp Condition: Stable cp Diagnosis - Nausea with vomiting, unspecified cp - Diarrhea, unspecified cp - Dizziness and giddiness cp Followup: cp - With: Private Physician - When: 2 - 3 days - Reason: Worsening of condition Discharge Instructions: - Discharge Summary Sheet cp - Food Choices to Help Relieve Diarrhea, Adult cp - Diarrhea, Adult cp - Dizziness cp - Nausea and Vomiting, Adult cp Forms: - Medication Reconciliation Form cp - Thank You Letter cp - Antibiotic Education cp - Prescription Opioid Use cp - School release form aa9 - Work release form aa9 - Family Work Release aa9 Prescriptions: - Zofran 4 mg Oral Tablet - take 1 tablet by ORAL route every 12 hours As needed; 20 tablet; Refills: 0, cp Product Selection Permitted Signatures: Bakari Kumar MD MD rn Page, Corey, PA PA cp Peyton Nguyen RN RN lg3 Holley Pacheco RN RN aa9 Corrections: (The following items were deleted from the chart) 02/16 22:28 22:25 Home Meds: None; lg3 lg3
--- NOTE | 2023-02-17 12:14 | EKG ---
Test Date: 2023-02-16 Test Time: 22:50:37 Senior Database Administrator: SILVESTRE MEASUREMENT RESULTS: Intervals: Rate: 77 GA: 146 QRSD: 82 QT: 378 QTc: 427 [place]: P: 51 GA: 146 QRS: 41 T: 56 INTERPRETIVE STATEMENTS: Normal sinus rhythm Normal ECG Compared to ECG 07/07/2022 21:20:23 No significant changes Electronically Signed On 02-17-23 12:12:49 CDT by Magdy Contreras
[2023-02-17 12:24] VITALS: TEMP 98.7
[2023-02-17 12:27] VITALS: O2SAT 100
[2023-02-17 12:28] VITALS: BP 121/87
--- NOTE | 2023-02-17 14:23 | RAD REPORT ---
EXAM DESCRIPTION: CT - Head Brain Wo Cont - 02/17/2023 5:52 am CLINICAL HISTORY: The patient is 42 years old and is Female; DIZZINESS TECHNIQUE: Axial computed tomography images of the head/brain without intravenous contrast. Sagitt al and coronal reformatted images were created and reviewed. This CT exam was performed using one o r more of the following dose reduction techniques: automated exposure control, adjustment of the mA and/or kV according to patient size, and/or use of iterative reconstruction technique. COMPARISON: No relevant prior studies available. FINDINGS: Brain: Unremarkable. No hemorrhage. No significant white matter disease. No edema. Ventricles: Unremarkable. No ventriculomegaly. Bones/joints: Unremarkable. No acute fracture. Soft tissues: Unremarkable. Sinuses: Unremarkable as visualized. Mastoid air cells: Unremarkable as visualized. No mastoid effusion. IMPRESSION: No acute intracranial abnormality. Electronically signed by: Matthieu Lee MD 02/17/2023 1:01 AM CDT Due to temporary technical issues with the PACS/Fluency reporting system, reports are being signed by the in house radiologists without review as a courtesy to insure prompt reporting. The interpreting radiologist is fully responsible for the content of the report.
--- NOTE | 2023-02-17 14:26 | RAD REPORT ---
EXAM DESCRIPTION: CT - Abdomen Pelvis W Contrast - 02/17/2023 5:53 am CLINICAL HISTORY: The patient is 42 years old and is Female; ABD PAIN TECHNIQUE: Axial computed tomography images of the abdomen and pelvis with intravenous contrast. S agittal and coronal reformatted images were created and reviewed. This CT exam was performed using one or more of the following dose reduction techniques: automated exposure control, adjustment of t he mA and/or kV according to patient size, and/or use of iterative reconstruction technique. COMPARISON: No relevant prior studies available. FINDINGS: Lung bases: Unremarkable. No mass. No consolidation. ABDOMEN: Liver: Unremarkable. No mass. Gallbladder and bile ducts: Unremarkable. No calcified stones. No ductal dilation. Pancreas: Unremarkable. No mass. No ductal dilation. Spleen: Unremarkable. No splenomegaly. Adrenals: Unremarkable. No mass. Kidneys and ureters: Unremarkable. No solid mass. No hydronephrosis. Stomach and bowel: Distention of the stomach and the first portion of the duodenum. Scattered colonic diverticula. No mucosal thickening. PELVIS: Appendix: The appendix is normal. Bladder: Unremarkable. Reproductive: Unremarkable as visualized. ABDOMEN and PELVIS: Intraperitoneal space: Unremarkable. No free air. No significant fluid collection. Bones/joints: No acute fracture. No dislocation. Soft tissues: Unremarkable. Vasculature: Unremarkable. No abdominal aortic aneurysm. Lymph nodes: Unremarkable. No enlarged lymph nodes. IMPRESSION: No acute finding in the abdomen/pelvis. Electronically signed by: Matthieu Lee MD 02/17/2023 1:33 AM CDT Due to temporary technical issues with the PACS/Fluency reporting system, reports are being signed by the in house radiologists without review as a courtesy to insure prompt reporting. The interpreting radiologist is fully responsible for the content of the report.
== END 2023-02-17 02:52 | disposition home or self-care (01) ==
LOC: ER 21:44
DX: R11.2 Nausea with vomiting, unspecified (principal); R19.7 Diarrhea, unspecified; R42 Dizziness and giddiness; F32.A Depression, unspecified
CPT/HCPCS: 96361; 93005; 85025; 81001; 36415 ×2; 84703; 83690; 80053; 70450; 74177; 96374; 99283; Q9967; J8597; J2405; J7030